=== PATIENT | male | born 1985 | race Caucasian/White ===

== ENCOUNTER 2020-02-16 21:17 | Emergency (ER) | payer MEDICAID ==
[~2020-02-16] VITALS: Ht 180.3 cm; Wt 68.0 kg
[2020-02-16 21:21] VITALS: BP_SYST 125
--- NOTE | 2020-02-16 21:21 | NUR ---
Patient to ER bed 5 to gown for evaluation. Side rails up. Report given to MARTHA GALLARDO.
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
--- NOTE | 2020-02-16 21:32 | NUR ---
ER Dr. Martinez at bedside examining patient.
--- NOTE | 2020-02-16 22:01 | NUR ---
Patient placed in eye station for 10 mins. Patient tolerated well.
[2020-02-16 22:20] VITALS: BP_SYST 116
--- NOTE | 2020-02-16 22:20 | NUR ---
Patient given written and verbal discharge instructions and verbalizes understanding. ER MD discussed with patient the results and treatment provided. Patient in stable condition. ID arm band removed. No Rx given Patient educated on pain management and to follow up with PMD. Pain Scale 0/10 Opportunity for questions provided and answered.
== END 2020-02-16 22:20 | disposition home or self-care (01) ==
LOC: SED 21:17
DX: H10.219 Acute toxic conjunctivitis, unspecified eye (principal); F41.9 Anxiety disorder, unspecified
CPT/HCPCS: 99283